=== PATIENT | female | born 1995 | race Two or more races ===

== ENCOUNTER → 2018-10-05 | Outpatient (CLI) | payer OTHER ==
[~2018-10-05] MED LIST: ALBUTEROL17 G1; [UNRECOGNIZED DRUG - OTHER]
== END | disposition home or self-care (01) ==
LOC: NUCLEAR 08:30
DX: M06.4 Inflammatory polyarthropathy (principal)
CPT/HCPCS: 78315; A9503

== ENCOUNTER 2024-10-11 11:18 | Emergency (ER) | payer OTHER ==
[~2024-10-11] VITALS: Ht 160 cm; Wt 59.0 kg
[2024-10-11 11:30] VITALS: BP 106/73; O2SAT 100
[2024-10-11] MEDS ORDERED: SYNTHROID100 MCG PO (11:36)
[2024-10-11 12:46] LABS: BASO % 0.5 % (0.1-1.2); EOS # 0.16 (0.04-0.54); EOS % 2.8 % (0.7-7.0); HEMOGLOBIN 13.8 g/dL (11.2-15.7); LYMPH # 1.64 (1.18-3.74); LYMPH % 28.4 % (19.3-53.1); MEAN CORPUSCULAR HEMOGLOBIN 30.9 pg (25.6-32.2); MONO # 0.34 (0.24-0.82); MONO % 5.9 % (4.7-12.5); NEUT # 3.59 (1.56-6.13); NEUT % 62.2 % (34.0-71.1); PLATELET COUNT 310 K/uL (163-369); RED BLOOD COUNT 4.46 M/uL (3.93-5.22); RED CELL DISTRIBUTION WIDTH 12.8 % (11.6-14.4)
[2024-10-11 14:27] LABS: CALCIUM 9.6 mg/dL (8.5-10.1); CREATININE SERUM 1.04 mg/dL (0.55-1.02); GFR 62.65; POTASSIUM 4.37 mEq/L (3.5-5.1)
== END 2024-10-11 16:16 | disposition home or self-care (01) ==
LOC: ER 11:26
PROVIDERS: Emergency Medicine
DX: R53.1 Weakness (principal); R11.10 Vomiting, unspecified; F41.9 Anxiety disorder, unspecified; E03.8 Other specified hypothyroidism